=== PATIENT | female | born 1985 | race Caucasian/White ===

== ENCOUNTER 2019-06-18 05:36 | Inpatient (IN) | payer OTHER ==
[~2019-06-18] VITALS: Ht 170.2 cm; Wt 65.5 kg
[2019-06-18] VITALS (31 sets, daily range): BP systolic 95–135; BP diastolic 51–91; PULSE 55–108; TEMP 97.9–98.2
--- NOTE | 2019-06-18 05:45 | NUR ---
Pt arrived on unit with complaints of SROM at 0415 with clear fluid. Pt also reports contractions every 10 mins since SROM with normal movement. EFM and toco monitors started. Vital signs WNL. SVE by this RN with positive amnio-test. Spoke with Dr. Engel regarding pt's arrival, SROM, SVE and FHR tracing reviewed. Labor admission orders received. Plan of care reviewed with pt.
[2019-06-18] MEDS ORDERED: PRENATAL (06:02)
--- NOTE | 2019-06-18 06:45 | NUR ---
Consents signed and IV started to left wrist x 1 attempt. Blood drawn from IV site and then flushes without difficulty. Pt up to bathroom. Pt requesting epidural, breathing through contractions. 0725:SVE: /-1. 0750T.Matthew WARREN at bedside. Pt sitting up on side of bed. Epidural placed, test dose at 0802, pt tolerated well. See anesthesia notes.
[2019-06-18 07:49] LABS: HEMOGLOBIN 12.3 g/dl (12.5-16.0); MEAN CELL VOLUME 87 fl (80.0-100.0); MEAN CORPUSCULAR HEMOGLOBIN 31 pg (27.0-31.0); MEAN CORPUSCULAR HGB CONC 36 g/dl (33.0-37.0); MEAN PLATELET VOLUME 10.6 fl (7.4-10.4); PLATELET COUNT 203 K/mm3 (130-400); RED BLOOD COUNT 3.96 M/mm3 (4.10-5.30); REDCELL DISTRIBUTION WIDTH-CV 13.4 % (11.5-14.5)
[2019-06-18 07:52] LABS: HEMATOCRIT 34.4 % (37.0-47.0)
--- NOTE | 2019-06-18 08:45 | NUR ---
Dr Engel here, SVE: 0. Pericare done and cooper catheter placed.
[2019-06-18 09:08] LABS: LYMPHOCYTE 18 % (20.0-51.0); METAMYELOCYTE 1 % (0-0); NEUTROPHILS 71 % (42.0-75.2); PLATELET ESTIMATE NORMAL (NORMAL)
--- NOTE | 2019-06-18 12:35 | NUR ---
SVE: complete +2. Pt prepped for delivery and cooper catheter removed. 1240:pt pushes x 2 and good progress made. 1245:Dr dolan called for delivery. 1252:Dr Dolan here and pt begins to push. Pushes through 3 contractions. 1302: of baby boy's head and shoulders. nuchal cord x 1 noted. 1304:Spontaneous delivery of placenta. LR with pitocin infusing at 333mu. Bilateral labia lac and 1st degree perineal lac repaired by physician. Fundus firm, bleeding WNL. Pericare done and ice pack in place.
--- NOTE | 2019-06-18 15:50 | NUR ---
Pt up and ambulates to bathroom with assist. Voids 600cc urine. Pericare instructions given and new pads and ice pack in place. Pt stands up and starts to ambulate and states she is starting to feel dizzy. Pt to wheelchair and taken to room 207. After laying down, pt states feeling much better. Instructed to call when needing to get up the first time. Pt denies any pain.
[2019-06-19 01:35] VITALS: BP 96/72; PULSE 64; TEMP 98.2
[2019-06-19 09:00] VITALS: BP 96/52; PULSE 68; TEMP 97.7
[2019-06-19] MEDS ORDERED: EFFEXOR XR75 MG/CAP PO (09:04)
[2019-06-19] MEDS ORDERED: MOTRIN 800800 MG/TAB PO (09:04)
[2019-06-19] MEDS ORDERED: PERCOCET 325 MG1 TA2 PO (09:04)
[2019-06-19 12:20] VITALS: BP 107/63; PULSE 63; TEMP 97.9
== END 2019-06-19 15:35 | disposition home or self-care (01) | DRG 807 ==
LOC: LDRO 05:36 → LDR 06:14 → OB 16:10
PROVIDERS: ADMIT Obstetrics & Gynecology
PROC: 10E0XZZ Delivery of Products of Conception, External Approach (ICD-10-PCS; principal; 2019-06-18)
PROC: 0HQ9XZZ Repair Perineum Skin, External Approach (ICD-10-PCS; 2019-06-18)
DX: O99.344 Other mental disorders complicating childbirth (principal); Z37.0 Single live birth; F41.9 Anxiety disorder, unspecified; Z3A.39 39 weeks gestation of pregnancy; O26.893 Other specified pregnancy related conditions, third trimester; O70.0 First degree perineal laceration during delivery; F32.9 Major depressive disorder, single episode, unspecified; Z67.11 Type A blood, Rh negative
CPT/HCPCS: J2590; J2791; J7120